=== PATIENT | male | born 1995 | race Caucasian/White ===

== ENCOUNTER 2020-01-12 13:38 | Outpatient (REF) | payer MEDICAID, OTHER, SELFPAY | END 2020-01-12 13:39 | disposition home or self-care (01) | LOC: HO.LAB 13:38 | PROVIDERS: PCP Family Medicine; Visit Provider Internal Medicine | DX: Z20.828 Contact with and (suspected) exposure to other viral communicable diseases (principal) | CPT/HCPCS: C9803; U0003 ==

== ENCOUNTER 2020-03-07 10:41 | Outpatient (REF) | payer MEDICAID, OTHER, SELFPAY | END 2020-03-07 10:42 | disposition home or self-care (01) | LOC: HO.LAB 10:41 | PROVIDERS: Visit Provider Internal Medicine | DX: Z20.828 Contact with and (suspected) exposure to other viral communicable diseases (principal) | CPT/HCPCS: C9803; U0003 ==

== ENCOUNTER 2020-04-06 15:16 | Outpatient (REF) | payer OTHER, SELFPAY ==
--- NOTE | 2020-04-06 15:26 | XR_ITS ---
EXAMINATION: XR CHEST CLINICAL INFORMATION: Nonspecific reaction to gamma intrfm respns w/o actv TB. COMPARISON: None TECHNIQUE: 2 views of the chest were obtained. FINDINGS: No significant abnormality is noted involving the heart, lungs, mediastinum, bony thorax or soft tissues. XR/XR chest 2V IMPRESSION: Unremarkable examination.
== END 2020-04-06 15:17 | disposition home or self-care (01) ==
LOC: HO.XRAY 15:16
PROVIDERS: PCP Family Medicine; Visit Provider Internal Medicine Infectious Disease
DX: R76.12 Nonspecific reaction to cell mediated immunity measurement of gamma interferon antigen response without active tuberculosis (principal)
CPT/HCPCS: 71046

== ENCOUNTER 2024-07-11 12:59 | Outpatient (REF) | payer OTHER, SELFPAY ==
[2024-07-11 16:17] LABS: MANUAL DIFF FLAG NO
[2024-07-11 16:24] LABS: Basophils Absolute Auto 0.1 X10*3/uL (0.0-0.2); Basophils Percent Auto 0.4 % (0-2); Eosinophils Absolute Auto 0.4 X10*3/uL (0.0-0.4); Eosinophils Percent Auto 3.7 % (0-4); Hematocrit 39.3 % (42.0-52.0); Hemoglobin 13.5 g/dl (14.0-18.0); Imm Gran Abs Auto 0.06 X10*3/uL (0.00-0.03); Imm Gran Pct Auto 0.5 % (0.0-0.4); Lymphocytes Absolute Auto 3.8 X10*3/uL (1.2-4.9); Lymphocytes Percent Auto 31.8 % (20-40); Mean Corpuscular HGB Conc 34.4 g/dl (31.0-36.0); Mean Corpuscular Hemoglobin 30.3 pg (27.0-33.0); Mean Corpuscular Volume 88.1 fL (80.0-98.0); Mean Platelet Volume 8.6 fL (9.4-12.4); Monocytes Absolute Auto 0.8 X10*3/uL (0.1-1.2); Monocytes Percent Auto 6.4 % (2-11); Neutrophils Absolute Auto 6.8 x10*3/uL (2.0-8.3); Neutrophils Percent Auto 57.2 % (45-73); Platelet Count 349 X10*3/uL (160-400); Red Blood Count 4.46 X10*6/uL (4.60-5.80); Red Cell Distribution Width 12.9 % (11.0-16.0); White Blood Count 11.9 X10*3/uL (4.8-10.8)
[2024-07-11 16:51] LABS: Alanine Aminotransferase 45 U/L (0-40); Albumin Level 4.4 g/dL (3.5-5.0); Anion Gap 12 (12-20); Aspartate Amino Transferase 35 U/L (5-37); Bilirubin Direct 0.1 mg/dL (0.0-0.5); Bilirubin Total 0.4 mg/dL (0.0-1.0); Blood Urea Nitrogen 12 mg/dL (9-16); Carbon Dioxide 23 mmol/L (22-29); Chloride 107 mmol/L (96-108); Estimated Glomerular Filt Rate > 60; Glucose Random 118 mg/dL (60-115); Potassium 3.9 mmol/L (3.3-5.1); Sodium 138 mmol/L (135-145); Total Protein 7.3 g/dL (6.5-8.0)
[2024-07-11 17:17] LABS: Alkaline Phosphatase 69 U/L (39-117)
[2024-07-15 13:38] LABS: HIV RNA PCR Qn Copies 40 Copies/mL
[2024-07-15 22:09] LABS: Absolute CD3 Count 2007 cells/uL (840-3060); Absolute CD4 Count 1144 cells/uL (490-1740); Absolute CD8 Count 889 cells/uL (180-1170); Absolute Lymphocytes 3642 cells/uL (850-3900); CD4 CD8 Ratio 1.29 (0.86-5.00); Percent CD3 Cells 55 % (57-85); Percent CD4 Cells 31 % (30-61); Percent CD8 Cells 24 % (12-42)
[2024-07-17 13:39] LABS: Testosterone, Total 7 ng/dL (250-1100)
[2024-07-23 01:49] LABS: Estradiol Free 3.72 pg/mL; Estradiol, Ultrasensitive 161 pg/mL (< OR = 29)
== END 2024-07-11 13:00 | disposition home or self-care (01) ==
LOC: HO.HHCL 12:59
PROVIDERS: Family Medicine; Visit Provider Internal Medicine
DX: F64.9 Gender identity disorder, unspecified (principal); Z21 Asymptomatic human immunodeficiency virus [HIV] infection status
CPT/HCPCS: 36415; 80053; 82248; 82670; 82681; 84403; 85025; 86359; 86360; 87536; 87900